=== PATIENT | male | born 1965 | race Caucasian/White ===

== ENCOUNTER 2024-11-30 07:48 | Day surgery (SDC) | payer BC, SELFPAY ==
[2024-11-30] VITALS (11 sets, daily range): BP systolic 131–156; BP diastolic 78–99; PULSE 64–84; RESP 16–20; TEMP 36.4; O2SAT 97–100; BMI 33.1
--- OUTSIDE RECORDS SUMMARY | 2024-11-30 07:51 | XMS_ITS | Clinical Summary ---
Author Organization [employer] [facility] Address [place], [place] [address] Care Team Providers Care Supervisor Putty And Caluking Name Role Phone Arnold Potter MD Primary Care Provider Allergies Active Allergy Reactions Criticality Noted Date Comments Penicillin G Rash 11/20/2020 Rhubarb Rash 11/20/2020 Just the leaves Medications aspirin (ECOTRIN) 81 mg enteric coated tablet Take 1 Tablet (81 mg) by mouth once daily with a meal. 12/09/2023 Active multivitamin (MVI) tablet Take 1 Tablet by mouth once daily. 12/09/2023 Active allopurinoL (ZYLOPRIM) 100 mg tabletIndication s:Idiopathic gout, unspecified chronicity, unspecified site Take 1 Tablet (100 mg) by mouth once daily. 90 Tablet 3 12/09/2023 Active levothyroxine (SYNTHROID) 50 mcg tabletIndication s:Hypothyroidism , unspecified type Take 1 Tablet (50 mcg) by mouth before breakfast. 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 Encounters Date Type Department Care Team Description 11/03/[address] [phone] Arnold Potter MD Results 10/28/2024 Orders Only [facility] Scanner 1 scan: (1-Ord) KIDD from Last 3 Months Immunizations Name Administration Dates Next Due MMR 06/30/1997 Td (Age >=7 Years) 11/22/2021,06/30/1997 Tdap 12/19/2008 Tuberculin (PPD) 06/30/1997 Family History Medical History Relation Name Comments Heart Disease Father HEART ATTACK Diabetes Paternal Grandmother TYPE 2 Diabetes Sister 4 TYPE [address] Diabetes Sister 5 TYPE [address] Relation Name Status Comments Brother 1 Alive Brother 2 Alive Father (Age 46) Maternal Grandfather Maternal Grandmother Mother Alive Paternal Grandfather Paternal Grandmother Sister 1 Alive HALF Sister 2 Alive HALF Sister 3 Alive HALF Sister 4 Sister 5 Son 1 Alive Son 2 Alive Son 3 Alive Social History Tobacco Use Types Packs/Day Years Used Date Smoking Tobacco: Former Cigarettes 0.5 20 0 11/20/1971 - 11/20/1991 Smokeless Tobacco: Former Chew Quit: 11/20/1991 Tobacco Cessation:Counseling Given: Not Answered Alcohol Use Standard Drinks/Week Comments Yes 10 (1 standard drink = 0.6 oz pu re alcohol) occasional PHQ-2 Answer Date Recorded PHQ-2 TOTAL SCORE 0 12/09/2023 Social Connections Answer Date Recorded Frequency of Communication with Friends and Fami ly Not on file 10/13/2021 Financial Resource Strain Answer Date R ecorded Difficulty of Paying Living Expenses Not on file 10/13/2021 Difficulty of Paying Living Expenses Not on file 10/13/2021 Sex and Gender Information Value Date Recorded Sex Assigned at Not on file Legal Sex Male 5:23 AM WIRE FRAME LAMP SHADE MAKER Gender Identity Not on file Sexual Orientation Not on file 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 Not on file Not on file Not on file Not on file Not on file Not on file Not on file Obstetrics History Last Filed Vital Signs Vital Sign Reading Time Taken Comments Blood Pressure 126/82 12/09/2023 9:27 AM WIRE FRAME LAMP SHADE MAKER Pulse 72 12/09/2023 9:27 AM WIRE FRAME LAMP SHADE MAKER Temperature 36.6 C (97.8 F) 10/20/2023 12:54 PM WIRE FRAME LAMP SHADE MAKER Respiratory Rate 16 12/09/2023 9:27 AM WIRE FRAME LAMP SHADE MAKER Oxygen Saturation 98% 10/20/2023 3:15 PM WIRE FRAME LAMP SHADE MAKER Inhaled Oxygen Concentration - - Weight 97.7 kg (215 lb 6.4 oz) 12/09/2023 9:27 A M WIRE FRAME LAMP SHADE MAKER Height 172.7 cm (5' 8) 12/09/2023 9:27 AM WIRE FRAME LAMP SHADE MAKER Body Mass Index 32.75 12/09/2023 9:27 AM WIRE FRAME LAMP SHADE MAKER Plan of Treatment Health Maintenance Due Date Last Done Comments HIV for age 15-65 1980 Pneumococcal series for age 50+ (1 of 1 - PCV) 2015 Zoster (shingles) series for age 50+ (1 of 2) 2015 COVID-19 vaccine series ( - 2023- season) 2024 Influenza for age 50-64 06/13/2024 BMI (ht and wt on same day) for age 18+ 12/09/2024 12/09/2023, 10/03/2023, 11/25/2022, Additional history exists Depression screening for age 12+ 12/09/2024 12/09/2023, 11/23/2021, 11/22/2021, Additional history exists Lipids for age 45-75 01/02/2026 01/02/2021, 12/04/2015, 11/13/2010, Additional history exists Colonoscopy through age 75 10/20/202810/20, 09/23/2016, 09/23/2016, Additional history exists Tetanus booster 11/22/2031 11/22/2021, 03/0 06/2009, 06/30/1997 Tdap Completed 12/19/2008 Hepatitis C screening for ag e 18-79 Completed 12/04/2015 Procedures Procedure Name Priority Date/Time Associated Diagnosis Comments SCAN-ELECTROMYOGRAM EMG 10/28/2024 12:00 AM WIRE FRAME LAMP SHADE MAKER COLONOSCOPY 10/20/2023 2:01 PM WIRE FRAME LAMP SHADE MAKER LIPID PANEL W REFLEX MEASURED LDL STAT 01/02/2021 8:03 AM CDT Screening for lipid disorders ANTI HCV Routine 12/04/2015 10:14 AM WIRE FRAME LAMP SHADE MAKER Need for hepatitis C screening test from Last 3 Months or Most Recently Relevant to Health Maintenance Results * SCAN-ELECTROMYOGRAM EMG (10/28/2024 12:00 AM WIRE FRAME LAMP SHADE MAKER) us Scanner OTHER Final Result * COLONOSCOPY (10/20/2023 2:01 PM WIRE FRAME LAMP SHADE MAKER) 10/20/2023 2:01 PM WIRE FRAME LAMP SHADE MAKER Narrative Transcriptions Marga Wilson, - 11/01/2023 5:49 PM CST Patient Name: Trenton Horton Procedure Date: 10/20/2023 Gender: Male Date of : 1965 Admit Type: Ambulatory Procedure: Colonoscopy Proceduralist: Marga Wilson MD Referring MD: Arnold Potter Indications/Pre-Op Diagnosis: High risk colon cancer surveillance:Personal history of colonic polyps Medications: Propofol per Anesthesia, MonitoredAnesthesia Care Procedure Description: The patient had risks, benefits and alternatives explained to andgave informed consent. The patient had a stable cardiopulmonary status and judged an adequate candidate for conscious sedation. The endoscope [id number] was passed through the anus andadvanced to the cecum, identified by appendiceal orifice and ileocecal valve.The colonoscopy was performed without difficulty. The patient toleratedthe procedure well. The quality of the bowel preparation was good. The ileocecal valve, appendiceal orifice, and rectum were photographed. Complications: No immediate complications. Estimated blood loss: Minimal. Estimated Blood Loss & Specimen: Estimated blood loss was minimal. Specimen collected - Yes and sent to Laboratory Findings: The perianal and digital rectal examinations were normal. Pertinent negatives include normal sphincter tone and normal stool Hemoccult. A 4 mm polyp was found in the sigmoid colon. The polyp was sessile.The polyp was removed with a hot snare. Resection and retrieval were complete. Verification of patient identification for the specimen was done. Estimated blood loss was minimal. A 10 mm polyp was found in the descending colon. The polyp was multi-lobulated. The polyp was removed with a piecemeal techniqueusing a hot snare. Resection and retrieval were complete. Verification of patient identification for the specimen was done. Estimated bloodloss was minimal. Multiple medium-mouthed and small-mouthed diverticula were found inthe sigmoid colon and descending colon. The exam was otherwise without abnormality on direct and retroflexion views. Impressions/Post-Op Diagnosis: - One 4 mm polyp in the sigmoid colon, removed with a hot snare. Resected and retrieved. - One 10 mm polyp in the descending colon, removed piecemeal using ahot snare. Resected and retrieved. - Diverticulosis in the sigmoid colon and in the descending colon. - The examination was otherwise normal on direct and retroflexionviews. Recommendation: - Patient has a contact number available for emergencies. The signsand symptoms of potential delayed complications were discussed with the patient. Return to normal activities tomorrow. Written discharge instructions were provided to the patient. - Discharge patient to home (ambulatory). - Resume previous diet. - Continue present medications. - Await pathology results. - Repeat colonoscopy in 3 years for surveillance after piecemeal polypectomy. Marga Wilson MD 11/01/2023 5:49:27 PM This report has been signed electronically. Note Initiated On: 10/20/2023 2:01 PM us Marga Wilson DO PROCEDURE ORD Final Res ult * (ABNORMAL) LIPID PANEL W REFLEX MEASURED LDL (01/02/2021 8:03 AM CDT) CHOLESTEROL,TOTAL 192 100 - 199 mg/dL 01/02/2021 8:34 AM CDT [facility] TRIGLYCERIDES 153(H) <150 mg/dL 01/02/2021 8:34 AM CDT [facility] HDL CHOLESTEROL 44 >40 mg/dL 8:34 AM CDT [facility] NON-HDL CHOLESTEROL 148(H) <145 mg/dl 01/02/2021 8:34 AM CDT [facility] CHOL/HDL RATIO 4.36 <4.50 01/02/2021 8:34 AM CDT [facility] LDL CHOLESTEROL 117 <=130 mg/dL 01/02/2021 8:34 AM CDT [facility] PROVIDER ORDERED STATUS RANDOM 01/02/2021 8:34 AM CDT [facility] Blood BLOOD SPECIMEN / Unknown Venipuncture / Unknown 01/02/2021 8:03 AM CDT 01/02/2021 8:04 AM CDT us Arnold Potter MD CHEMISTRY Final Result [facility] [address] [place] [address] * ANTI HCV (12/04/2015 10:14 AM WIRE FRAME LAMP SHADE MAKER) HEPATITIS C ANTIBODY Non-Reacti ve Non-Reacti ve 12/04/2015 5:05 PM WIRE FRAME LAMP SHADE MAKER [facility] Blood specimen (specimen) BLOOD SPECIMEN / Unknown Venipuncture / Unknown 12/04/2015 10:14 AM WIRE FRAME LAMP SHADE MAKER 12/04/2015 10:15 AM WIRE FRAME LAMP SHADE MAKER Narrative [facility] - 12/04/2015 5:05 PM WIRE FRAME LAMP SHADE MAKER Antibodies to HCV not detected; does not exclude the possibility of exposure to HCV. us Tj Stearns MD SEND OUTS Final Result [facility] [address] [place] [address], [place] from Last 3 Months or Most Recently Relevant to Health Maintenance Insurance [facility] Advance Directives * Full Code (Latest Code Status on File) Date Activated Date Inactivated Comments 10/20/2023 12:39 PM 10/20/2023 5:49 PM Question Answer Comments Code Status Discussion: Discussed Care Teams Supervisor Putty And Caluking Relationship Specialty Start Date End Date Arnold Potter MD [address] [place] [address] [place] [address] PCP - General Family Practice 11/25/22
--- OUTSIDE RECORDS SUMMARY | 2024-11-30 07:51 | XMS_ITS | Clinical Summary ---
Author Organization [facility] Address [address] [place] [address] Care Team Providers Care Geothermal Electrical Engineer Name Role Phone Unavailable Primary Care Provider Unavailabl e Source Comments Patient records contain information from all sites at [facility]. For routine questions regarding patient records, call [phone] during business hours, M-F 8:00 AM - 5:00 PM Central Time. Record requests for emergency care only can be directed to [phone] at any time.[facility] Active Problems Problem Noted Date Diagnosed Date Monoplegia Lower Limb 05/24/2016 Overview (03/04/2017): Monoplegia Lower Limb NOS Encounters Date Type Department Care Team Description 10/28/2024 1:30 PM TRUCK MECHANIC Diagnostic Department of Neurology in [place], [place] [address], [place] [phone] Tyler Moss M.D. Carpal Tunnel Syndrome Bilateral from Last 3 Months Family History Medical History Relation Name Comments Coronary artery disease Father Relation Name Status Comments Father Social History Tobacco Use Types Packs/Day Years Used Date Smoking Tobacco: Former Nutrition Answer Date Recorded Nutrition: EVOO Fat Source Unknown 12/15 Nutrition: Servings of Fruits/Vegetables per Day Not on file 12/15/2020 Dental Answer Date Recorded Dental: Regular Dentist Unknown 12/16/19 21 Sex and Gender Information Value Date Recorded Sex Assigned at Not on file Legal Sex Male 3:36 PM TRUCK MECHANIC Gender Identity Not on file Sexual Orientation Not on file Last Filed Vital Signs Vital Sign Reading Time Taken Comments Blood Pressure 120/80 05/24/2016 8:36 AM CDT Pulse 80 05/24/2016 8:36 AM CDT Temperature - - Respiratory Rate 16 05/24/2016 8:36 AM CDT Oxygen Saturation - - Inhaled Oxygen Concentration - - Weight 95.5 kg (210 lb 8.6 oz) 05/23/2016 10:51 AM CDT Height 174 cm (5' 8.5) 05/24/2016 8:31 AM CDT Body Mass Index 31.54 05/23/2016 10:51 AM CDT Plan of Treatment Health Maintenance Due Date Last Done Comments CT Colonography 1965 Cologuard 1965 FIT 1965 HIV Screening 1965 Hepatitis C Screening 1965 Hepatitis B Vaccines (1 of 3 - 19+ 3-dose series) 1984 Pneumococcal vaccine (50+ years) (1 of 1 - PCV) 2015 Zoster Vaccines (1 of 2) 2015 COVID-19 Vaccine ( - 2023-2 5 season) 2024 Influenza Vaccine (#1) 2024 Depression Screening (Annual PHQ-2) 10/13/2024 Fasting Glucose for Diabetes Screening 11/25/2025 11/25/2022, 01/02/2021 Lipid (Cholesterol) Screening 01/02/2026 01/02/2021 DTaP,Tdap,and Td Vaccines (3 - Td or Tdap) 11/22/2031 11/22/2021, 12/19/2008 Colonoscopy 10/20/2033 10/20/2023 Colorectal Cancer Screening 10/20/2033 IPV Vaccines Aged Out No longer eligi ble based on patient's age to complete this topic Procedures Procedure Name Priority Date/Time Associated Diagnosis Comments EMG Routine 10/28/2024 12:59 PM TRUCK MECHANIC Carpal Tunnel Syndrome Bilateral from Last 3 Months Results * EMG (10/28/2024 12:59 PM TRUCK MECHANIC) 10/28/2024 1:30 PM TRUCK MECHANIC Narrative [facility] EM[facility] - 10/28/2024 1:50 PM TRUCK MECHANIC Table formatting from the original result was not included. 28-Oct-2024 Electromyography Final Report Study Number: 1 EMG Host/Hostess: Tyler Moss Referred by: ARNOLD JURADO () Referred for: CTS Referral Code: 211 RX: 211 SUMMARY: Prior to starting the procedure, the patient's identity was verified, pertinent available records were reviewed, the nature of the procedure was explained, the appropriate sites of the exam were confirmed directly with the patient, and a pre-procedure pause was performed for final verification of all of the above. Nerve conduction studies in the left upper extremity revealed median motor response with a markedly prolonged distal latencies reduced amplitude and conduction velocity. There was evidence of a median to ulnar crossover in the forearm which is a normal variant. Median antidromic sensory response showed a prolonged distal latency reduced amplitude. Ulnar motor and antidromic sensory responses were normal. In the right upper extremity median motor response again showed a prolonged distal latencies and reduced amplitude. Median antidromic sensory response showed a prolonged distal latency reduced amplitude. Ulnar antidromic sensory response was normal. Needle EMG of the left upper extremity revealed high amplitude long duration markedly complex motor unit potentials with reduced recruitment in the abductor pollicis brevis muscle with fibrillation potentials. Remainder of needle EMG of the left upper extremity was normal. Limited needle EMG of the right APB revealed high amplitude long duration motor units with mildly reduced recruitment and faint fibrillations. CLINICAL INTERPRETATION: Abnormal study. The electrodiagnostic evidence is consistent with bilateral, severe median neuropathies at the wrists; as can be seen in carpal tunnel syndrome. Artur Moss () NERVE CONDUCTIONS Record Rep Normal Normal Distal Normal F-Wave F-Wave Temp Nerve Type Site Stim Side Amp Amp CV CV Lat Lat Lat Est ( C) Median Motor APB L 1.3 (> 4.0) 45 (> 48) 10.2 (< 4.5) 31.7 Ulnar Motor ADM L 13.1 (> 6.0) 66 (> 51) 2.9 (< 3.6) 30.7 Median Sensory Dig II L 2 (> 15.0) (> 56) 8.2 (< 3.6) 30.3 Ulnar Sensory Dig V L 20 (> 10.0) 67 (> 54) 2.7 (< 3.1) 30.9 Median Motor APB R 1.7 (> 4.0) 50 (> 48) 7.5 (< 4.5) 31.8 Median Sensory Dig II R 11 (> 15.0) (> 56) 7.6 (< 3.6) 31.1 Ulnar Sensory Dig V R 18 (> 10.0) (> 54) 2.7 (< 3.1) 30.9 NEEDLE EMG Ins Spont MUP Recruitment Duration Amplitude Phases Muscle Side Act Fib Fasc Normal Activ Reduced Rapid Long Short High Low % Turns Abductor pollicis brevis L INC ++ 0 ----- ++ + + 50% +++ First dorsal interosseous L NL 0 0 NL Pronator teres L NL 0 0 NL Biceps brachii L NL 0 0 NL Triceps brachii (lateral head) L NL 0 0 NL + Abductor pollicis brevis R INC + 0 ----- ++ + + + This interpretation has been electronically signed: Tyler Moss M.D. at 10/28/2024 1:48:24 PM TRUCK MECHANIC us Arnold Jurado M.D. NEUROLOGY ORDERABLES Final R esult EMG from Last 3 Months Insurance [employer]
--- OUTSIDE RECORDS SUMMARY | 2024-11-30 07:51 | XMS_ITS | Patient Health Record ---
Author Organization [facility] Address [address] [place] [address] Care Team Providers Care Print Production Manager Name Role Phone Sang MATSON, David Unavailable [phone] Reason For Referral No Information Plan Of Treatment No Information Insurance Providers Payer Name Payer Address Payer Phone Subscriber Number Group Number Insured Name Patient Relationship to Insured Coverage Start Date Coverage End Date [employer] () [address], [address] [place] [address] [phone] Trenton Horton Self - patient is the insured [facility] [id number] [place] [address] [address] [place], [place] [id number] Trenton Horton Self - patient is the insured 8
--- OUTSIDE RECORDS SUMMARY | 2024-11-30 07:51 | XMS_ITS | Encounter Summary ---
Author Organization [facility] Address [address] [place] [address] Care Team Providers Care Senior Erp Consultant Name Role Phone Unavailable Primary Care Provider Unavailabl e Reason for Visit * Reason Comments Emg * Outpatient (Routine) - Closed Specialty Diagnoses / Procedures Referred By Jackie wiggins Referred To Contact Diagnoses Carpal Tunnel Syndrome Bilateral Procedures EMG Arnold Jurado M.D. [address] [place] [phone] Phone: tel: fax: [facility] Region Referral ID Status Reason Start Date Expiration Date Visits Re quested Visits Authorized [id number] Closed 10/09/2023 10/08/2024 1 1 Encounter Details Date Type Department Care Team (Late st Contact Info) Description 10/28/2024 1:30 PM TURBINE ROOM ATTENDANT Diagnostic Department of Neurology in [place], [place] [address] [phone] Tyler Moss M.D. [address] [phone] Carpal Tunnel Syndrome Bilateral Social History Tobacco Use Types Packs/Day Years Used Date Smoking Tobacco: Former Nutrition Answer Date Recorded Nutrition: EVOO Fat Source Unknown 12/15 Nutrition: Servings of Fruits/Vegetables per Day Not on file 12/15/2020 Dental Answer Date Recorded Dental: Regular Dentist Unknown 12/16/19 21 Sex and Gender Information Value Date Recorded Sex Assigned at Not on file Legal Sex Male 3:36 PM TURBINE ROOM ATTENDANT Gender Identity Not on file Sexual Orientation Not on file documented as of this encounter Plan of Treatment Not on file documented as of this encounter Procedures Procedure Name Priority Date/Time Associated Diagnosis Comments EMG Routine 10/28/2024 12:59 PM TURBINE ROOM ATTENDANT Carpal Tunnel Syndrome Bilateral documented in this encounter Results * EMG (10/28/2024 12:59 PM TURBINE ROOM ATTENDANT) 10/28/2024 1:30 PM TURBINE ROOM ATTENDANT Narrative [facility] EM[facility] - 10/28/2024 1:50 PM TURBINE ROOM ATTENDANT Table formatting from the original result was not included. 28-Oct-2024 Electromyography Final Report Study Number: 1 EMG Behavioral Health Clinician: Tyler Moss Referred by: ARNOLD JURADO () [...] Tyler Moss M.D. at 10/28/2024 1:48:24 PM TURBINE ROOM ATTENDANT us Arnold Jurado M.D. NEUROLOGY ORDERABLES Final R esult EMG documented in this encounter Visit Diagnoses Diagnosis Carpal Tunnel Syndrome Bilateral documented in this encounter
[2024-11-30] MEDS: LIDOCAINE 1%-EPI 1:100,000 20 ML INFILTRATI ×2 (08:30→08:47)
[2024-11-30] MEDS: BUPIVACAINE 0.5 %/EPI 1:200K INJECTION (08:30)
[2024-11-30] MEDS: [UNRECOGNIZED DRUG - OTHER] INJECTION (08:47)
--- NOTE | 2024-11-30 09:12 | PM.ORPRC ---
Procedure Note Date of procedure: 11/30/24 Procedure: Preop diagnosis: Left upper extremity carpal tunnel syndrome Postop diagnosis: Left upper extremity carpal tunnel syndrome Procedure: Left upper extremity carpal tunnel release Anesthesia: Local Surgeon: Calixto Ramirez MD printer's assistant: BENNY Velazquez EBL: 2 mL Complications: None Specimens: None Drains: None Indications: The patient has a history of left upper extremity carpal tunnel syndrome symptoms. Despite appropriate nonoperative management consisting of nighttime bracing and occupational therapy they continue to have symptoms. Operative intervention was recommended. The risks, benefits alternatives and expected outcomes were discussed in detail. These included but were not limited to: Infection, bleeding, injury to blood vessel or nerve, venous thromboembolism. All questions were answered to their satisfaction. The patient was placed supine on the operating room table. Local anesthesia was established with 0.5% Marcaine with epinephrine and 2% lidocaine with epinephrine. The hand was prepped and draped in usual sterile fashion. A longitudinal incision was made centered over the radial border of the ring finger at the base of the palm. Subcutaneous dissection was sharply taken through the palmar fascia and the palmaris brevis to the transverse carpal ligament. The ligament was divided in line with the incision. Proximal and distal dissection was carried with tenotomy and Metzenbaum scissors for a wide decompression of the carpal tunnel. The wound was closed with a 3-0 nylon. A bulky dry dressing was applied, sponge and needle counts were correct x 2. The patient tolerated the procedure well, there were no apparent complications. They were sent to same day surgery in satisfactory condition. Plan: Use of the hand as tolerates. Discontinue the intraoperative dressing on postoperative day 3 and may get the wound wet as tolerates. Follow up in the office in 2 weeks for a wound check and suture removal.
== END 2024-11-30 09:42 | disposition home or self-care (01) ==
LOC: OR 07:49
PROVIDERS: PCP Family Medicine; Visit Provider Orthopaedic Surgery
PROC: (CPT 64721; principal; 2024-11-30 09:00)
DX: G56.02 Carpal tunnel syndrome, left upper limb (principal)
CPT/HCPCS: 64721; J3490

== ENCOUNTER 2024-12-16 06:03 | Day surgery (SDC) | payer BC, SELFPAY ==
--- OUTSIDE RECORDS SUMMARY | 2024-12-16 06:05 | XMS_ITS | Clinical Summary ---
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 Encounters Date Type Department Care Team Description 12/14[facility]2024 [facility] [address] [place] [address] Arnold Potter MD Results 12/13/2024 1:10 PM TRAFFIC RATE CLERK Office Visit [address] [address] Arnold Potter MD Preoperative Exam (Surgery with Dr Ramirez on 12/16/24 at [facility] ); Medication Management 12/13/2024 Travel 12/13/[address] [address] Arnold Potter MD Questions 12/08/2024 Travel 11/03/[address] [address] Arnold Potter MD Results 10/28/2024 Orders Only [facility] Scanner 1 scan: (1-Ord) JENA from Last 3 Months Immunizations Name Administration Dates Next Due MMR 06/30/1997 Td (Age >=7 Years) 11/22/2021,06/30/1997 Tdap 12/19/2008 Tuberculin (PPD) 06/30/1997 Family History Medical History Relation Name Comments Heart Disease Father HEART ATTACK Diabetes Paternal Grandmother TYPE 2 Diabetes Sister 4 [address] Diabetes Sister 5 TYPE [address] Anesthesia Problem No Family History Clotting disorder No Family History Relation Name Status Comments Brother 1 Alive [...] Answered Alcohol Use Standard Drinks/Week Comments Yes 6 (1 standard drink = 0.6 oz pur e alcohol) occasional PHQ-2 Answer Date Recorded PHQ-2 TOTAL SCORE 0 12/13/2024 Social Connections Answer Date Recorded Do you often feel lonely or isolated from those around you? 0 12/08/2024 Financial Resource Strain Answer Date R ecorded Difficulty of Paying Living Expenses 3 12/08/2024 Difficulty of Paying Living Expenses Not on file 12/08/2024 Food Insecurity Answer Date Recorded Do you worry your food will run out before you are able to buy more? 1 12/08/2024 Transportation Needs Answer Date Record ed Does lack of transportation keep you from medica l appointments? 1 12/08/2024 Does lack of transportation keep you from work, meetings or getting things that you need? 1 12/08/2024 Housing Stability Answer Date Recorded What is your housing situation today? 1 12/08/2024 Utilities Answer Date Recorded Do you have trouble paying f or utilities (for example, heat, electricity, water, phone)? 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 Not on file Not on file Not on file Not on file Not on file Not on file Not on file Obstetrics History Last Filed Vital Signs Vital Sign Reading Time Taken Comments Blood Pressure 134/80 12/13/2024 1:17 PM TRAFFIC RATE CLERK Pulse 92 12/13/2024 1:17 PM TRAFFIC RATE CLERK Temperature 36.6 C (97.8 F) 10/20/2023 12:54 PM TRAFFIC RATE CLERK Respiratory Rate 20 12/13/2024 1:17 PM TRAFFIC RATE CLERK Oxygen Saturation 97% 12/13/2024 1:17 PM TRAFFIC RATE CLERK Inhaled Oxygen Concentration - - Weight 99.8 kg (220 lb) 12/13/2024 1:17 PM TRAFFIC RATE CLERK Height 172.1 cm (5' 7.75) 12/13/2024 1:17 PM CS T Body Mass Index 33.7 12/13/2024 1:17 PM TRAFFIC RATE CLERK Plan of Treatment Health Maintenance Due Date Last Done Comments HIV for age 15-65 1980 Pneumococcal series for age 50+ (1 of 1 - PCV) 2015 Zoster (shingles) series for age 50+ (1 of 2) 2015 COVID-19 vaccine series ( - season) 2024 Influenza for age 50-64 06/13/2024 BMI (ht and wt on same day) for age 18+ 12/13/2025 12/13/2024, 12/09/2023, 10/03/2023, Additional history exists Depression screening for age 12+ 12/14/2025 12/14/2024, 12/13/2024, 12/13/2024, Additional history exists Lipids for age 45-75 01/02/2026 01/02/2021, 12/04/2015, 11/13/2010, Additional history exists Colonoscopy through age 75 10/20/202810/20, 09/23/2016, 09/23/2016, Additional history exists Tetanus booster 11/22/2031 11/22/2021, 06/2009, 06/30/1997 Tdap Completed 12/19/2008 Hepatitis C screening for ag e 18-79 Completed 12/04/2015 Procedures Procedure Name Priority Date/Time Associated Diagnosis Comments BASIC METABOLIC PANEL Routine 12/13/2024 1:51 PM TRAFFIC RATE CLERK Idiopathic gout, unspecified chronicity, unspecified site URIC ACID Routine 12/13/2024 1:51 PM TRAFFIC RATE CLERK Idiopathic gout, unspecified chronicity, unspecified site TSH WITH REFLEX Routine 12/13/2024 1:51 PM TRAFFIC RATE CLERK Idiopathic gout, unspecified chronicity, unspecified site SCAN-ELECTROMYOGRAM EMG 10/28/2024 12:00 AM TRAFFIC RATE CLERK COLONOSCOPY 10/20/2023 2:01 PM TRAFFIC RATE CLERK LIPID PANEL W REFLEX MEASURED LDL STAT 01/02/2021 8:03 AM CDT Screening for lipid disorders ANTI HCV Routine 12/04/2015 10:14 AM TRAFFIC RATE CLERK Need for hepatitis C screening test from Last 3 Months or Most Recently Relevant to Health Maintenance Results * TSH WITH REFLEX (12/13/2024 1:51 PM TRAFFIC RATE CLERK) TSH W/REFLEX TO FT4 4.06 0.40 - 4.50 mIU/L [facility] Blood BLOOD SPECIMEN / Unknown 12/13/2024 1:51 PM TRAFFIC RATE CLERK 12/13/2024 1:53 PM TRAFFIC RATE CLERK Narrative [facility] - 12/14/2024 3:14 AM TRAFFIC RATE CLERK FASTING:NO FASTING: NO Arnold Potter MD CHEMISTRY Final Result Performing Organization Address [facility] de Phone Number Kaliki [facility] [address] [place] [address], [place] [phone] [facility] [address] [place] [address] * URIC ACID (12/13/2024 1:51 PM TRAFFIC RATE CLERK) URIC ACID 6.1 4.0 - 8.0 mg/dL [facility] [place] Comment: Therapeutic target for gout patients: <6.0 mg/dL Blood BLOOD SPECIMEN / Unknown 12/13/2024 1:51 PM TRAFFIC RATE CLERK 12/13/2024 1:53 PM TRAFFIC RATE CLERK Narrative [facility] - 12/14/2024 4:34 AM TRAFFIC RATE CLERK FASTING:NO FASTING: NO Arnold Potter MD CHEMISTRY Final Result Performing Organization Address [facility] de Phone Number Kaliki [facility] [address] [place] [address], [facility] [address] [place] [address] * (ABNORMAL) BASIC METABOLIC PANEL (12/13/2024 1:51 PM TRAFFIC RATE CLERK) GLUCOSE 139 65 - 139 mg/dL [facility] [place] Comment: Non-fasting reference interval UREA NITROGEN (BUN) 16 7 - 25 mg/dL [facility] CREATININE 1.35(H) 0.70 - 1.30 mg/dL [facility] EGFR 60 > OR = 60 mL/min/1.7 3m2 [facility] BUN/CREATININE RATIO 12 6 - 22 (calc) [facility] [place] SODIUM 139 135 - 146 mmol/L [facility] POTASSIUM 4.4 3.5 - 5.3 mmol/L [facility] CHLORIDE 103 98 - 110 mmol/L [facility] CARBON DIOXIDE 28 20 - 32 mmol/L [facility] ELECTROLYTE BALANCE 8 7 - 17 mmol/L (calc) [facility] CALCIUM 9.2 8.6 - 10.3 mg/dL [facility] Blood BLOOD SPECIMEN / Unknown 12/13/2024 1:51 PM TRAFFIC RATE CLERK 12/13/2024 1:53 PM TRAFFIC RATE CLERK Narrative [facility] - 12/14/2024 4:34 AM TRAFFIC RATE CLERK FASTING:NO FASTING: NO Arnold Potter MD CHEMISTRY Final Result [facility] [address] [place] [address], [facility] [address] [place] [address] * SCAN-ELECTROMYOGRAM EMG (10/28/2024 12:00 AM TRAFFIC RATE CLERK) us Scanner OTHER Final Result * COLONOSCOPY (10/20/2023 2:01 PM TRAFFIC RATE CLERK) 10/20/2023 2:01 PM TRAFFIC RATE CLERK Narrative Transcriptions Marga Wilson DO - 11/01/2023 5:49 PM CST Patient Name: Trenton Horton Procedure Date: 10/20/2023 Gender: Male Date of : 1965 Admit Type: Ambulatory Procedure: Colonoscopy Proceduralist: Magra Wilson MD Referring MD: Arnold Potter Indications/Pre-Op Diagnosis: High risk colon cancer surveillance:Personal history of colonic polyps Medications: Propofol per Anesthesia, MonitoredAnesthesia Care Procedure Description: The patient had risks, benefits and alternatives explained to andgave informed consent. The patient had a stable cardiopulmonary status and judged an adequate candidate for conscious sedation. The endoscope [id number] was passed through the anus andadvanced to [...] - 199 mg/dL 01/02/2021 8:34 AM CDT [facility] TRIGLYCERIDES 153(H) <150 mg/dL 01/02/2021 8:34 AM CDT [facility] HDL CHOLESTEROL 44 >40 mg/dL 8:34 AM CDT [facility] NON-HDL CHOLESTEROL 148(H) <145 mg/dl 01/02/2021 8:34 AM CDT [facility] CHOL/HDL RATIO 4.36 <4.50 01/02/2021 8:34 AM CDT [facility] LDL CHOLESTEROL 117 <=130 mg/dL 01/02/2021 8:34 AM CDT [facility] PROVIDER ORDERED STATUS RANDOM 01/02/2021 8:34 AM CDT [facility] Blood BLOOD SPECIMEN / Unknown Venipuncture / Unknown 01/02/2021 8:03 AM CDT 01/02/2021 8:04 AM CDT us Arnold Potter MD CHEMISTRY Final Result [address] [address] * ANTI HCV (12/04/2015 10:14 AM TRAFFIC RATE CLERK) HEPATITIS C ANTIBODY Non-Reacti ve Non-Reacti ve 12/04/2015 5:05 PM TRAFFIC RATE CLERK [facility] Blood specimen (specimen) BLOOD SPECIMEN / Unknown Venipuncture / Unknown 12/04/2015 10:14 AM TRAFFIC RATE CLERK 12/04/2015 10:15 AM TRAFFIC RATE CLERK Narrative [facility] - 12/04/2015 5:05 PM TRAFFIC RATE CLERK Antibodies to HCV not detected; does not exclude the possibility of exposure to HCV. us Tj Stearns MD SEND OUTS Final Result [facility] [address] [place] [address], from Last 3 Months or Most Recently Relevant to Health Maintenance Insurance [id number] Advance Directives * Full Code (Latest Code Status on File) Date Activated Date Inactivated Comments 10/20/2023 12:39 PM 10/20/2023 5:49 PM Question Answer Comments Code Status Discussion: Discussed Care Teams Career Orientation Teacher Relationship Specialty Start Date End Date Arnold Potter MD [address] [place] [address] PCP - General Family Practice 11/25/22
--- OUTSIDE RECORDS SUMMARY | 2024-12-16 06:05 | XMS_ITS | Patient Health Record ---
Author Organization [facility], C Address [address] [place] [address] Care Team Providers Care Bias Cutter Helper Name Role Phone Sang MATSON, David Unavailable [phone] Reason For Referral No Information Plan Of Treatment No Information Insurance Providers Payer Name Payer Address Payer Phone Subscriber Number Group Number Insured Name Patient Relationship to Insured Coverage Start Date Coverage End Date [employer] () [address], [address] [place] [address] [phone] Trenton Horton Self - patient is the insured [facility] [address] [place] [address] [address] [place], [place] [id number] Trenton Horton Self - patient is the insured 8
[2024-12-16 06:29] VITALS: BMI 33.4
[2024-12-16 06:56] VITALS: BP 140/91; PULSE 73; RESP 16; TEMP 36.5; O2SAT 98
[2024-12-16] MEDS: LACTATED RINGERS 500 ML 500 ML 100 ML IV (07:00)
[2024-12-16] MEDS: CEFAZOLIN 2 GM INJ IVP (07:30)
[2024-12-16] MEDS: LIDOCAINE 1%-EPI 1:100,000 5 ML INJECTION (08:00)
[2024-12-16] MEDS: BUPIVACAINE 0.25 %/EPI 1:200K 30 ml 10 ML INJECTION (08:00)
--- NOTE | 2024-12-16 08:00 | PM.ORPRC ---
Procedure Note Date of procedure: 12/16/24 Procedure: Preop diagnosis: Right upper extremity carpal tunnel syndrome Postop diagnosis: Right upper extremity carpal tunnel syndrome Procedure: Right upper extremity carpal tunnel release Anesthesia: Local Surgeon: Calixto Ramirez MD accounts receivable assistant: BENNY Velazquez EBL: 2mL Complications: None Specimens: None Drains: None Indications: The patient has a history of right upper extremity carpal tunnel syndrome symptoms. Despite appropriate nonoperative management consisting of nighttime bracing and occupational therapy they continue to have symptoms. Operative intervention was recommended. The risks, benefits alternatives and expected outcomes were discussed in detail. These included but were not limited to: Infection, bleeding, injury to blood vessel or nerve, venous thromboembolism. All questions were answered to their satisfaction. The patient was placed supine on the operating room table. Local anesthesia was established with 0.5% Marcaine with epinephrine and 2% lidocaine with epinephrine. The hand was prepped and draped in usual sterile fashion. A longitudinal incision was made centered over the radial border of the ring finger at the base of the palm. Subcutaneous dissection was sharply taken through the palmar fascia and the palmaris brevis to the transverse carpal ligament. The ligament was divided in line with the incision. Proximal and distal dissection was carried with tenotomy and Metzenbaum scissors for a wide decompression of the carpal tunnel. The wound was closed with a 3-0 nylon. A bulky dry dressing was applied, sponge and needle counts were correct x 2. The patient tolerated the procedure well, there were no apparent complications. They were sent to same day surgery in satisfactory condition. Plan: Use of the hand as tolerates. Discontinue the intraoperative dressing on postoperative day 3 and may get the wound wet as tolerates. Follow up in the office in 2 weeks for a wound check and suture removal.
[2024-12-16 08:13] VITALS: BP 114/78; PULSE 68; RESP 16; TEMP 36.5; O2SAT 95
--- NOTE | 2024-12-16 08:15 | P.ANES_ITS ---
Anesthesia Charges Start Date/Time Anesthesia Start Date: 12/16/24 Anesthesia Start Time: 07:22 Stop Date/Time Anesthesia Stop Date: 12/16/24 Anesthesia Stop Time: 08:15 Coding CPT Codes CPT Codes: ANESTH LOWER ARM SURGERY - 93942 ([id number]) P2 - PATIENT W/MILD SYST DISEASE, QK - RECOVERY ENGINEER 2-4 CNCRNT ANES PROC, QX - DATA BASE DESIGN ANALYST SVC W/ MD MED DIRECTION
--- NOTE | 2024-12-16 08:15 | W.ANESCHARGE ---
Anesthesia Charges Start Date/Time Anesthesia Start Date: 12/16/24 Anesthesia Start Time: 07:22 Stop Date/Time Anesthesia Stop Date: 12/16/24 Anesthesia Stop Time: 08:15 Coding CPT Codes CPT Codes: ANESTH LOWER ARM SURGERY - 53004 ([id number]) P2 - PATIENT W/MILD SYST DISEASE, QK - FILLER SHREDDER MACHINE 2-4 CNCRNT ANES PROC, QX - ULTRASOUND SUPERVISOR SVC W/ MD MED DIRECTION
[2024-12-16 08:30] VITALS: BP 112/79; PULSE 68; RESP 16; O2SAT 94
[2024-12-16 08:45] VITALS: BP 138/101; PULSE 61; RESP 16; O2SAT 94
--- NOTE | 2024-12-16 08:59 | P.ANES_ITS ---
Anesthesia Charges Start Date/Time Anesthesia Start Date: 12/16/24 Anesthesia Start Time: 07:22 Stop Date/Time Anesthesia Stop Date: 12/16/24 Anesthesia Stop Time: 08:15 Coding CPT Codes CPT Codes: ANESTH LOWER ARM SURGERY - 73742 ([id number]) P2 - PATIENT W/MILD SYST DISEASE, QK - PIECE DYEING MACHINE TENDER 2-4 CNCRNT ANES PROC, QX - MILL WORK SVC W/ MD MED DIRECTION
--- NOTE | 2024-12-16 08:59 | W.ANESCHARGE ---
Anesthesia Charges Start Date/Time Anesthesia Start Date: 12/16/24 Anesthesia Start Time: 07:22 Stop Date/Time Anesthesia Stop Date: 12/16/24 Anesthesia Stop Time: 08:15 Coding CPT Codes CPT Codes: ANESTH LOWER ARM SURGERY - 37126 ([id number]) P2 - PATIENT W/MILD SYST DISEASE, QK - SEWAGE PLANT SUPERVISOR 2-4 CNCRNT ANES PROC, QX - SHEET METAL DUCT INSTALLER APPRENTICE SVC W/ MD MED DIRECTION
[2024-12-16 09:07] VITALS: BP 130/88
== END 2024-12-16 09:13 | disposition home or self-care (01) ==
LOC: OR 06:03
PROVIDERS: PCP Family Medicine; Visit Provider Orthopaedic Surgery
PROC: (CPT 64721; principal; 2024-12-16 07:30)
DX: G56.01 Carpal tunnel syndrome, right upper limb (principal)
CPT/HCPCS: 64721; 01810; J0690; J2250; J2405; J2704; J3010; J7120